=== PATIENT | female | born 1965 | race Caucasian/White ===

== ENCOUNTER 2016-12-01 01:21 | Emergency (ER) | payer MEDICAID ==
[~2016-12-01] VITALS: Ht 165.1 cm; Wt 79.5 kg
[~2016-12-01 01:21] MED LIST: HYDR-3965 PO
[2016-12-01] MEDS ORDERED: GABA-529 PO (01:27)
[2016-12-01 03:20] VITALS: BP 149/88
[2016-12-01] MEDS ORDERED: CYCLOBENZAPRINE HCL 10 MG TABLET PO ONE (03:45)
[2016-12-01] MEDS ORDERED: KETOROLAC TROMETHAMINE 60 MG/2 ML VIAL IM ONE (03:45)
== END 2016-12-01 03:44 | disposition home or self-care (01) ==
LOC: EMS 01:22
DX: M54.41 Lumbago with sciatica, right side (principal); G89.29 Other chronic pain
CPT/HCPCS: 96372; 99283; J1885

== ENCOUNTER 2017-07-15 20:18 | Emergency (ER) | payer MEDICAID ==
[~2017-07-15] VITALS: Ht 154.9 cm; Wt 48.6 kg
[~2017-07-15 20:18] MED LIST changes: +GABA-529 PO; -HYDR-3965 PO
[2017-07-15] MEDS ORDERED: KETOROLAC TROMETHAMINE 30 MG/ML VIAL IM ONE (21:00)
[2017-07-15] MEDS ORDERED: ONDANSETRON HCL 4 MG TABLET PO ONE (21:00)
[2017-07-15 21:45] LABS: INFLUENZA TYPE A NEGATIVE FOR TYPE A (NEGATIVE); INFLUENZA TYPE B NEGATIVE FOR TYPE B (NEGATIVE)
[2017-07-15 22:35] LABS: APPEARANCE,URINE CLEAR (CLEAR); GLUCOSE, URINE (UA) NEGATIVE (NEGATIVE); KETONES,URINE NEGATIVE (NEGATIVE); LEUKOCYTE ESTERASE ,URINE NEGATIVE (NEGATIVE); NITRATE,URINE NEGATIVE (NEGATIVE); OCCULT BLOOD,URINE NEGATIVE (NEGATIVE); PROTEIN,URINE NEGATIVE (NEGATIVE)
[2017-07-15 22:41] LABS: BILIRUBIN,URINE PRELIM. POSITIVE (NEGATIVE)
[2017-07-15 23:03] VITALS: BP 121/76
== END 2017-07-15 23:13 | disposition home or self-care (01) ==
LOC: EMS 20:20
DX: J06.9 Acute upper respiratory infection, unspecified (principal); B34.9 Viral infection, unspecified
CPT/HCPCS: 81003; 87804; 96372; 99284; J1885; Q0162